=== PATIENT | female | born 2000 | race Caucasian/White ===

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

== ENCOUNTER → 2021-05-03 | Outpatient (CLI) | payer BC, OTHER | END | disposition home or self-care (01) | LOC: LAB SHORT 11:16 | DX: O09.93 Supervision of high risk pregnancy, unspecified, third trimester (principal) | CPT/HCPCS: 87081; 87150 ==

== ENCOUNTER 2021-06-03 20:05 | Inpatient (IN) | payer OTHER ==
[~2021-06-03] VITALS: Ht 160 cm; Wt 75.0 kg
[2021-06-03 21:01] LABS: BASOPHILS ABSOLUTE AUTO 0.01 K/mm3 (0.00-0.23); BASOPHILS PERCENT AUTO 0 % (0-2); EOSINOPHILS ABSOLUTE AUTO 0.07 K/mm3 (0.00-0.68); EOSINOPHILS PERCENT AUTO 1 % (0-6); Hematocrit 30.5 % (33.0-51.0); Hemoglobin 9.7 g/dL (11.5-16.0); IMMATURE GRAN ABSOLUTE AUTO 0.04 K/mm3 (0.00-0.10); IMMATURE GRAN PERCENT AUTO 1 % (0-1); LYMPHOCYTES ABSOLUTE AUTO 1.15 K/mm3 (0.84-5.20); LYMPHOCYTES PERCENT AUTO 13 % (21-46); MONOCYTES ABSOLUTE AUTO 0.73 K/mm3 (0.16-1.47); MONOCYTES PERCENT AUTO 9 % (4-13); Mean Corpuscular HGB 23.6 pg (26.0-34.0); Mean Corpuscular HGB Conc 31.8 g/dL (31.5-36.5); Mean Corpuscular Volume 74 fL (80-100); Mean Platelet Volume 9.5 fL (9.1-12.4); NEUTROPHILS PERCENT AUTO 77 % (41-73); Platelet Count 207 K/mm3 (150-400); RDW Coefficient Variation 15.1 % (11.7-14.2); RDW Standard Deviation 40.5 fL (35.1-46.3); Red Blood Cell Count 4.11 M/mm3 (3.80-5.20)
[2021-06-03] MEDS ORDERED: PRENATAL TABLE1 EAC2 PO (21:10)
[2021-06-03 23:33] LABS: Influenza A, PCR NEGATIVE (NEGATIVE); Influenza B, PCR NEGATIVE (NEGATIVE); Resp Syncytial Virus, PCR NEGATIVE (NEGATIVE); SARS-Cov-2 (COVID-19) PCR, MMC NEGATIVE (NEGATIVE)
--- NOTE | 2021-06-06 14:39 | NUR ---
1400 ASSUMED CARE OF PATIENT RESTING QUIETLY WITH BABY IN ARMS. COMFORTABLE AT PRESENT. PLAN OF CARE DISCUSSED
[2021-06-06] MEDS ORDERED: IBU800 MG PO (18:50)
== END 2021-06-06 19:00 | disposition home or self-care (01) | DRG 807 ==
LOC: OBS 20:05 → BC 20:13
PROVIDERS: ADMIT Family Medicine
PROC: 10E0XZZ Delivery of Products of Conception, External Approach (ICD-10-PCS; principal; 2021-06-05)
PROC: 0HQ9XZZ Repair Perineum Skin, External Approach (ICD-10-PCS; 2021-06-05)
PROC: 00HU33Z Insertion of Infusion Device into Spinal Canal, Percutaneous Approach (ICD-10-PCS; 2021-06-05)
PROC: 3E0R3BZ Introduction of Anesthetic Agent into Spinal Canal, Percutaneous Approach (ICD-10-PCS; 2021-06-05)
PROC: 3E033VJ Introduction of Other Hormone into Peripheral Vein, Percutaneous Approach (ICD-10-PCS; 2021-06-05)
PROC: 3E0R3NZ Introduction of Analgesics, Hypnotics, Sedatives into Spinal Canal, Percutaneous Approach (ICD-10-PCS; 2021-06-05)
DX: O48.0 Post-term pregnancy (principal); Z37.0 Single live birth; Z20.822 Contact with and (suspected) exposure to COVID-19; Z3A.40 40 weeks gestation of pregnancy; Z88.0 Allergy status to penicillin; Z91.018 Allergy to other foods; O70.0 First degree perineal laceration during delivery; Z28.21 Immunization not carried out because of patient refusal; Z67.10 Type A blood, Rh positive
CPT/HCPCS: 0241U; 36415; 51702; 85025; 86850; 86900; 86901; A9270; J1885; J2001; J3010; J7120